=== PATIENT | male | born 1980 | race Caucasian/White ===

== ENCOUNTER 2021-10-21 08:06 | Emergency (ER) | payer BC, OTHER ==
[~2021-10-21] VITALS: Ht 177.8 cm; Wt 68.2 kg
[2021-10-21 08:07] VITALS: BP 154/86
[2021-10-21] MEDS ORDERED: GABA-282 (08:14)
[2021-10-21] MEDS ORDERED: NAPR-855 (08:14)
[2021-10-21] MEDS ORDERED: KETOROLAC 60MG 2ML VIAL IM ONE (09:45)
[2021-10-21] MEDS ORDERED: diazePAM 10 MG TAB PO ONE (09:45)
[2021-10-21] MEDS ORDERED: METH-1165 PO (11:16)
[2021-10-21] MEDS ORDERED: PRED20TA PO (11:16)
[2021-10-21] MEDS ORDERED: MORPHINE 10 MG/ML 1ML VIAL (J2270) IM ONE (11:35)
[2021-10-21] MEDS ORDERED: predniSONE 20 MG TAB PO ONE (11:35)
[2021-10-21] MEDS ORDERED: HYDR-3713 PO (12:44)
[2021-10-21] MEDS ORDERED: NORCO, ANEXSIA 5/325MG TABLET (HYDROcodone/ACETAMINOPHEN) PO ONE (12:45)
== END 2021-10-21 12:53 | disposition home or self-care (01) ==
LOC: M ED 08:06
DX: M47.27 Other spondylosis with radiculopathy, lumbosacral region (principal); M51.17 Intervertebral disc disorders with radiculopathy, lumbosacral region; M54.17 Radiculopathy, lumbosacral region; M54.42 Lumbago with sciatica, left side
CPT/HCPCS: 72131; 96372; 99282; J1885; J2270; J7512